=== PATIENT | female | born 1980 | race Two or more races ===

== ENCOUNTER 2018-05-23 17:55 | Emergency (ER) | payer MEDICAID, OTHER ==
[~2018-05-23] VITALS: Ht 170.2 cm; Wt 79.4 kg
[2018-05-23 17:56] VITALS: BP 151/100
[2018-05-23] MEDS: SIMETHICONE 80 MG CHEWABLE TABLET PO ONE (23:15)
[2018-05-23] MEDS: KETOROLAC TROMETH 60MG/2ML VIAL IM ONE (23:15)
[2018-05-23] MEDS: ONDANSETRON ODT 4 MG TAB PO ONE (23:15)
== END 2018-05-24 00:47 | disposition home or self-care (01) ==
LOC: ER 17:59
DX: S13.4XXA Sprain of ligaments of cervical spine, initial encounter (principal); M62.838 Other muscle spasm; V49.49XA Driver injured in collision with other motor vehicles in traffic accident, initial encounter; Y93.89 Activity, other specified; Y99.8 Other external cause status; Y92.89 Other specified places as the place of occurrence of the external cause
CPT/HCPCS: 70450; 71250; 72125; 74176; 96372; 99284; J1885; Q0162

== ENCOUNTER 2021-08-07 16:24 | Emergency (ER) | payer MEDICAID ==
[~2021-08-07] VITALS: Ht 157.5 cm; Wt 68.0 kg
[2021-08-07 18:05] VITALS: BP 165/98
[2021-08-07] MEDS ORDERED: IBUPROFEN 800 MG TAB PO ONE (18:15)
== END 2021-08-07 18:17 | disposition home or self-care (01) ==
LOC: ER 16:24 → EDBD 16:24 → ER 18:17
DX: S50.11XA Contusion of right forearm, initial encounter (principal); S80.12XA Contusion of left lower leg, initial encounter; V49.9XXA Car occupant (driver) (passenger) injured in unspecified traffic accident, initial encounter; Y93.89 Activity, other specified; Y92.89 Other specified places as the place of occurrence of the external cause; Y99.8 Other external cause status

== ENCOUNTER 2022-11-04 23:16 | Emergency (ER) | payer MEDICAID ==
[~2022-11-04] VITALS: Ht 165.1 cm; Wt 94.0 kg
[2022-11-05 00:22] LABS: Urine Bacteria NONE SEEN /hpf (None Seen); Urine Blood 3+ /uL (Negative); Urine Specific Gravity 1.023 (1.001-1.035); Urine WBC 13 /hpf (0 - 5)
[2022-11-05 00:34] LABS: Basophils # (auto) 0.2 10 ^3/uL (0-0.2); Basophils % (auto) 1.8 % (0.0-2.0); Eosinophils # (auto) 0.3 10 ^3/uL (0-0.8); Eosinophils % (auto) 2.8 % (0.0-7.0); Hematocrit 42.3 % (36.0-46.0); Hemoglobin 14.6 g/dL (12.2-16.2); Lymphocytes # (auto) 3.7 10 ^3/uL (0.4-5.4); Lymphocytes % (auto) 35.9 % (10.0-50.0); Mean Corpuscular Hemoglobin 30.9 pg (28.0-32.0); Mean Corpuscular Hgb Conc. 34.5 g/dL (32.0-36.0); Mean Corpuscular Volume 89.6 fL (80.0-100.0); Monocytes # (auto) 0.6 10 ^3/uL (0-1.3); Monocytes % (auto) 6.2 % (0.0-12.0); Neutrophils # (auto) 5.5 10 ^3/uL (1.6-8.6); Neutrophils % (auto) 53.3 % (37.0-80.0); Nucleated Red Blood Cells % 0.1 %; Red Blood Cells 4.72 10^6/uL (4.0-5.20); Red Cell Distribution Width 13.3 % (11.8-14.3); White Blood Cell 10.3 10^3/uL (4.4-10.8)
[2022-11-05 00:49] LABS: Albumin 3.6 g/dL (3.4-5.0); BUN/Creatinine Ratio 26.8; Potassium 3.9 mmol/L (3.5-5.1)
[2022-11-05 00:51] LABS: Bilirubin, Total 0.4 mg/dL (0.2-1.0); Total Protein 8.5 g/dL (6.4-8.2)
[2022-11-05] MEDS ORDERED: IOHEXOL 300 MG/ML 100ML BOTTLE IJ ONE (02:40)
[2022-11-05 08:00] VITALS: BP 130/77
== END 2022-11-05 08:15 | disposition home or self-care (01) ==
LOC: ER 23:16
DX: R10.11 Right upper quadrant pain (principal); N28.1 Cyst of kidney, acquired; I10 Essential (primary) hypertension; Z98.890 Other specified postprocedural states
CPT/HCPCS: 36415; 74177; 80053; 81001; 81025; 83690; 85025; 99285; Q9967